=== PATIENT | male | born 1955 | race Caucasian/White ===

== ENCOUNTER → 2018-10-17 07:20 | Outpatient (CLI) | payer BC, SELFPAY ==
[2017-07-06 13:39] VITALS: BMI 25.2
[2018-10-17 09:04] LABS: AST(SGOT) 22 U/L (15-37); Alanine Aminotransfer ALT/SGPT 16 U/L (16-61); Albumin, Serum 3.5 g/dL (3.2-5.0); Alkaline Phosphatase 74 U/L (45-117); Bilirubin, Direct 0.25 mg/dL (0.00-0.30); Cholesterol 119 mg/dL (200); Globulin 3.2 g/dL (2.2-4.2); High Density Lipoprotein 48 mg/dL; Protein, Total 6.7 g/dL (6.4-8.2); Triglycerides 105 mg/dL; Very Low Density Lipoprotein 21 mg/dL (5-40)
== END ==
PROVIDERS: Family Provider Family Medicine; PCP Family Medicine; Referring Provider Internal Medicine Cardiovascular Disease; Visit Provider Internal Medicine Cardiovascular Disease
DX: E78.5 Hyperlipidemia, unspecified (principal); I25.10 Atherosclerotic heart disease of native coronary artery without angina pectoris; Z98.61 Coronary angioplasty status
CPT/HCPCS: 36415; 80061; 80076

== ENCOUNTER → 2018-11-07 06:37 | Outpatient (CLI) | payer BC, SELFPAY ==
[2018-10-21 08:31] VITALS: BMI 26.1
--- NOTE | 2018-11-07 06:42 | ECHOD_ITS ---
Reason For Study: CAD/ASHD Procedure This was a 2D Doppler, Color Flow transthoracic echocardiogram. Exam performed in department. Left Ventricle Normal LV size. Left ventricular systolic function is normal. The estimated ejection fraction is 60 %. Stage 1 diastolic dysfunction. No regional wall motion abnormalities noted. Right Ventricle Normal RV size. Normal systolic function. Atria Normal left atrium. Normal right atrium. Mitral Valve Normal mitral valve. Tricuspid Valve Normal tricuspid valve. Mild tricuspid valve insufficiency. Pulmonary artery systolic pressure is 28 mmHg. Aortic Valve Normal aortic valve. Pulmonic Valve Normal pulmonic valve. Great Vessels Normal aortic root. The pulmonary artery is normal size. Normal inferior vena cava. Pericardium/Pleural No pericardial effusion. MMode/2D Measurements & Calculations LVIDd: 5.0 cm IVSd: 0.90 cm Ao root diam: 3.1 cm LVIDs: 3.3 cm LVPWd: 0.96 cm RVDd: 3.3 cm FS: 35.2 % LAV(MOD-bp): 62.5 ml LA A4 area: 18.6 cm2 LA dimension(2D): 4.1 cm LAV(MOD-bp) Indexed: 30.9 ml/m2 LAV(MOD-sp2): 65.3 ml LAV(MOD-sp4): 54.1 ml RA A4 area: 19.4 cm2 Time Measurements MV dec time: 0.25 sec Doppler Measurements & Calculations MV E max chico: 92.6 cm/sec Lat Peak E' Chico: 10.4 cm/sec Med Peak E' [place]ico: 7.3 cm/sec MV A max chico: 106.3 cm/sec E/E' lat: 8.9 E/E' med: 12.7 MV E/A: 0.87 Ao V2 max: 157.1 cm/sec LV V1 max: 101.4 cm/sec PA V2 max: 122.0 cm/sec Ao max P.9 mmHg LV V1 max P.1 mmHg TR max chico: 247.0 cm/sec TR max P.4 mmHg Interpretation Summary Normal LV size. Left ventricular systolic function is normal. The estimated ejection fraction is 60 %. Stage 1 diastolic dysfunction. Structurally normal valves. Ordering Physician: Jeovany Feliz Referring Physician: Fabiano Quispe Performed By: Eliana Lemus, LEON, RVT
--- NOTE | 2018-11-07 09:14 | STRESSREP ---
Stress Test Report Exercise myocardial perfusion stress test. 63-year-old man with a history of coronary artery disease. Stress protocol: Resting EKG demonstrates normal sinus rhythm with a rate of 60 bpm and T wave inversion noted in lead III. The patient exercised according to the regular Andrew protocol for total duration of 12 minutes completing stage IV of the Andrew protocol the maximum heart rate attained was 144 bpm which was 92% of maximum predicted heart rate the maximum workload was 13.4 metabolic equivalents. Patient maintained sinus rhythm throughout the recording at rest were not T wave inversions were noted in lead III and persisted throughout the stress test. No clinical angina was noted. There were no other concerning EKG changes noted. The resting blood pressure was 148/84 with a peak blood pressure 172/80. No clinical angina was noted. Myocardial perfusion protocol. 10.0 mCi of technetium 99m sestamibi was injected at rest. The patient exercised according to regular Andrew protocol for 12 minutes at peak exercise 31.0 mCi of technetium 99m sestamibi was injected stress images were obtained stress and rest images were reconstructed and compared in the short axis vertical long horizontal long axis. Gated images were also obtained Perfusion SPECT analysis: Review of the stress images demonstrate normal uptake of tracer noted in all areas of the myocardium. The resting images similarly demonstrate normal uptake of tracer noted in all areas of the myocardium. No areas of reversibility are noted suggest ischemia no previous infarct is noted. Gated SPECT analysis: The gated ejection fraction is noted to be 69%. Conclusion: Exercise stress test with no evidence of ischemia noted at a high workload. Preserved ejection fraction. Excellent functional capacity.
== END ==
PROVIDERS: Family Provider Family Medicine; PCP Family Medicine; Referring Provider Internal Medicine Cardiovascular Disease; Visit Provider Internal Medicine Cardiovascular Disease
DX: I25.10 Atherosclerotic heart disease of native coronary artery without angina pectoris (principal); Z98.61 Coronary angioplasty status
CPT/HCPCS: 78452; 93017; 93306; A9500; A4216

== ENCOUNTER → 2019-10-21 08:11 | Outpatient (CLI) | payer BC, SELFPAY ==
[2018-10-21 08:31] VITALS: BMI 26.1
[2019-10-21 10:14] LABS: AST(SGOT) 32 U/L (15-37); Alanine Aminotransfer ALT/SGPT 18 U/L (16-61); Albumin, Serum 3.3 g/dL (3.2-5.0); Alkaline Phosphatase 80 U/L (45-117); Bilirubin, Direct 0.14 mg/dL (0.00-0.30); Cholesterol 123 mg/dL (200); High Density Lipoprotein 53 mg/dL; Protein, Total 6.3 g/dL (6.4-8.2); Triglycerides 57 mg/dL; Very Low Density Lipoprotein 11 mg/dL (5-40)
== END ==
PROVIDERS: Family Provider Family Medicine; PCP Family Medicine; Referring Provider Internal Medicine Cardiovascular Disease; Visit Provider Internal Medicine Cardiovascular Disease
DX: E78.00 Pure hypercholesterolemia, unspecified (principal)
CPT/HCPCS: 36415; 80061; 80076

== ENCOUNTER → 2020-09-30 | Outpatient (CLI) | payer BC, SELFPAY ==
[2019-10-22 08:41] VITALS: BMI 25.9
[2020-09-30 09:52] LABS: ALB/GLOB Ratio 1.1 RATIO (0.9-2.4); AST(SGOT) 35 U/L (15-37); Alanine Aminotransfer ALT/SGPT 19 U/L (16-61); Albumin, Serum 3.6 g/dL (3.2-5.0); Alkaline Phosphatase 115 U/L (45-117); Anion Gap 4 (5-15); BUN 17 mg/dL (7-18); BUN/Creat Ratio 12.3 RATIO (10-20); Bilirubin, Direct 0.22 mg/dL (0.00-0.30); Calcium,Total 8.6 mg/dL (8.5-10.1); Chloride 106 mmol/L (98-107); Cholesterol 129 mg/dL (200); Creatinine, Serum 1.38 mg/dL (0.70-1.30); EST Glomerular Filtration Rate 55 mL/min (>60); Est Glom Filt Rate - Afr Amer 66 mL/min (>60); Globulin 3.3 g/dL (2.2-4.2); Glucose 94 mg/dL (74-106); High Density Lipoprotein 64 mg/dL; Potassium 4.1 mmol/L (3.5-5.1); Protein, Total 6.9 g/dL (6.4-8.2); Sodium Level 139 mmol/L (136-145); Triglycerides 70 mg/dL; Very Low Density Lipoprotein 14 mg/dL (5-40)
== END | disposition home or self-care (01) ==
LOC: LAB 08:25
PROVIDERS: Internal Medicine Cardiovascular Disease; PCP Family Medicine; Referring Provider Family Medicine; Visit Provider Family Medicine
DX: E78.5 Hyperlipidemia, unspecified (principal); I25.10 Atherosclerotic heart disease of native coronary artery without angina pectoris
CPT/HCPCS: 36415; 80053; 80061; 82248

== ENCOUNTER → 2021-10-18 08:09 | Outpatient (CLI) | payer BC, SELFPAY ==
[2021-10-18 09:17] LABS: AST(SGOT) 32 U/L (15-37); Alanine Aminotransfer ALT/SGPT 19 U/L (16-61); Albumin, Serum 3.3 g/dL (3.2-5.0); Alkaline Phosphatase 89 U/L (45-117); Bilirubin, Direct 0.21 mg/dL (0.00-0.30); Cholesterol 129 mg/dL (200); Globulin 3.4 g/dL (2.2-4.2); High Density Lipoprotein 58 mg/dL; Protein, Total 6.7 g/dL (6.4-8.2); Triglycerides 64 mg/dL; Very Low Density Lipoprotein 13 mg/dL (5-40)
== END ==
PROVIDERS: Referring Provider Internal Medicine Cardiovascular Disease; Visit Provider Internal Medicine Cardiovascular Disease
DX: E78.5 Hyperlipidemia, unspecified (principal); I25.10 Atherosclerotic heart disease of native coronary artery without angina pectoris
CPT/HCPCS: 36415; 80061; 80076

== ENCOUNTER → 2021-11-06 07:06 | Outpatient (CLI) | payer BC, SELFPAY ==
--- NOTE | 2021-11-06 11:48 | STRESSREP ---
Stress Test Report Exercise myocardial perfusion stress test. 66-year-old man with a history of coronary artery disease. Stress protocol: Resting EKG demonstrates sinus bradycardia with a rate of 53 bpm. Resting blood pressure is 118/82 mmHg. The patient exercised according to regular Andrew protocol for total duration of 12 minutes. The maximum heart rate attained was 144 bpm which was 94% of max impact at heart rate the maximum workload was 13.4 metabolic equivalents. At rest there were no ST or T wave changes noted to suggest ischemia and at peak exercise upsloping ST changes were noted with did not meet the criteria for ischemia. No clinical angina was noted the test was terminated due to target heart rate being achieved. The peak blood pressure was 152/80 mmHg with a rate-pressure product of 21,300. Myocardial perfusion protocol. 11.0 mCi of technetium 99m sestamibi was injected at rest. The patient exercised according to regular Andrew protocol for total duration of 12 minutes. At peak exercise 33.2 mCi of technetium 99m sestamibi was injected stress images were obtained stress and rest images were reconstructed and compared in the short axis vertical long and horizontal long axis. Gated images were also obtained. Perfusion SPECT analysis: Review of the stress images demonstrate normal uptake of tracer noted in all areas of the myocardium. The resting images similarly demonstrate normal uptake of tracer noted in all areas of the myocardium. No areas of reversibility are noted to suggest ischemia. No previous infarct is noted. Gated SPECT analysis: The gated ejection fraction is 69%. Conclusion: Normal exercise myocardial perfusion stress test at a high workload. Preserved ejection fraction.
== END ==
PROVIDERS: PCP Internal Medicine; Referring Provider Internal Medicine Cardiovascular Disease; Visit Provider Internal Medicine Cardiovascular Disease
DX: I25.10 Atherosclerotic heart disease of native coronary artery without angina pectoris (principal); E78.5 Hyperlipidemia, unspecified; I10 Essential (primary) hypertension; Z95.5 Presence of coronary angioplasty implant and graft
CPT/HCPCS: 78452; 93017; A9500; A4216

== ENCOUNTER → 2022-07-30 | Outpatient (CLI) | payer BC, SELFPAY ==
[2022-07-30 08:39] LABS: Bacteria 0 SEEN /hpf (None Seen); Mucous, Urine 0 SEEN /hpf (<or=2+); Red Blood Cells-Urine 0 SEEN /hpf (0-5); Squamous Epithelial Cells - UA 0 SEEN /hpf (0-5); White Blood Cells 0 SEEN /hpf (0-5)
[2022-07-30 09:43] LABS: Color, Urine Yellow (Yellow); Glucose, Dipstick Normal (Normal); Ketone-Dipstick Negative (Negative); Leukocyte Esterase-Dipstick Negative /ul (Negative); Nitrite-Dipstick Negative (Negative); Occult Blood-Urine Negative /ul (Negative); Protein-Dipstick 15 mg/dl (Negative); Urine Bilirubin Dipstick Negative (Negative); Urine Clarity Clear (Clear); Urine Urobilinogen Normal (Normal)
== END | disposition home or self-care (01) ==
LOC: LAB 08:34
PROVIDERS: PCP Internal Medicine; Referring Provider Internal Medicine; Visit Provider Internal Medicine
DX: R10.9 Unspecified abdominal pain (principal)
CPT/HCPCS: 81001

== ENCOUNTER → 2022-08-01 | Outpatient (CLI) | payer BC, SELFPAY ==
--- NOTE | 2022-08-01 09:20 | US_ITS ---
STUDY: ABDOMINAL ULTRASOUND - RIGHT UPPER QUADRANT REASON FOR VISIT: Male, 67 years old Right flank discomfort -- Attention right upper quadrant, right kidney TECHNIQUE: Ultrasound evaluation of the right upper quadrant was performed with real-time and static sewell-scale imaging. TECHNICAL QUALITY: Adequate. COMPARISON: None. FINDINGS: Liver: The liver measures 15 cm. There is normal echogenicity of the liver. The bile ducts are within normal limits. There is hepatic color flow. The direction of portal flow is hepatopetal. There is a 2 cm x 1.5 cm x 1.5 cm cluster of cysts in the right lobe of the liver. Gallbladder: Normal distended gallbladder. The gallbladder wall measures 1.0 mm. There is a negative sonographic Lindo''s sign. There is no pericholecystic fluid. There are no gallstones. Common Bile Duct (C.B.D.): The common bile duct measures 5.0 mm. Pancreas: There is nonvisualization of the pancreas due to overlying bowel gas. Right Kidney: Normal size of the right kidney. The right kidney measures 9.9 cm x 6.4 cm x 4.3 cm. Normal renal cortex. The right cortex measures 1.2 cm. There is no demonstrated renal mass or cyst. There is no right hydronephrosis. US/Abdomen Limited IMPRESSION: 2 cm x 1.57 x 1.5 cm cyst in the right lobe of the liver. Electronically Signed: Lucas Pettit MD at 13:10 EDT ,
== END | disposition home or self-care (01) ==
PROVIDERS: PCP Internal Medicine; Referring Provider Internal Medicine; Visit Provider Internal Medicine
DX: R10.9 Unspecified abdominal pain (principal)
CPT/HCPCS: 76705

== ENCOUNTER → 2022-10-30 | Outpatient (CLI) | payer BC, SELFPAY ==
[2022-10-30 09:02] LABS: AST(SGOT) 22 U/L (15-37); Alanine Aminotransfer ALT/SGPT 18 U/L (16-61); Albumin, Serum 3.4 g/dL (3.2-5.0); Alkaline Phosphatase 99 U/L (45-117); Bilirubin, Direct 0.21 mg/dL (0.00-0.30); Cholesterol 121 mg/dL (200); Globulin 3.1 g/dL (2.2-4.2); High Density Lipoprotein 58 mg/dL; Protein, Total 6.5 g/dL (6.4-8.2); Triglycerides 58 mg/dL; Very Low Density Lipoprotein 12 mg/dL (5-40)
== END | disposition home or self-care (01) ==
LOC: LAB 08:02
PROVIDERS: PCP Internal Medicine; Referring Provider Internal Medicine Cardiovascular Disease; Visit Provider Internal Medicine Cardiovascular Disease
DX: E78.5 Hyperlipidemia, unspecified (principal)
CPT/HCPCS: 36415; 80061; 80076

== ENCOUNTER → 2022-11-28 | Outpatient (CLI) | payer BC, SELFPAY ==
[2022-11-28 09:36] LABS: PSA,Total - Annual Screen 2.08 ng/mL (0.00-4.00)
== END | disposition home or self-care (01) ==
PROVIDERS: PCP Internal Medicine; Referring Provider Internal Medicine; Visit Provider Internal Medicine
DX: Z12.5 Encounter for screening for malignant neoplasm of prostate (principal)
CPT/HCPCS: 36415; 84153; G0103

== ENCOUNTER → 2023-07-24 | Outpatient (CLI) | payer BC, SELFPAY | END | disposition home or self-care (01) | LOC: LABSPEC 10:28 | PROVIDERS: PCP Internal Medicine; Referring Provider Dermatology; Visit Provider Dermatology | DX: B35.1 Tinea unguium (principal); L84 Corns and callosities | CPT/HCPCS: 87101 ==

== ENCOUNTER → 2023-12-17 | Outpatient (CLI) | payer BC, SELFPAY ==
--- OUTSIDE RECORDS SUMMARY | 2023-12-17 08:47 | XMS RPT_ITS | CCD ---
Author Name Unknown Address [address] [place] [address] Organization [facility] Care Team Providers Care Cocoa Roaster Name Role Phone Samina Syed Unavailable Beth Jacobo Unavailable Clarisse Rice Unavailable Unavailable Pedro Piresn L Unavailable Unavailable Samina Syed Unavailable Beth Jacobo Unavailable Clarisse Rice Unavailable Unavailable Manchak, Eleanor Unavailable Unavailable Long, Marii L Unavailable Unavailable LongPedron L Unavailable Unavailable Slarb, Tanna Unavailable Unavailable Samina Syed MD Unavailable [phone] Beth Jacobo DO Unavailable Clarisse Rice Unavailable Unavailable Marii Pires RN Unavailable Unavailable Manchak ISAIAS, Eleanor Unavailable Unavailable Slarb IRONER, Tanna Unavailable Unavailable Beth Jacobo DO Attending Unavailable Samina Syed MD Consulting Unavailable Elizabeth KERRIE Angle Unavailable Unavailable Problems Active Problems Problem Classification Problem Date Documented Da te Episodic/Chronic Immunizations and screening for infectious disease (20 sources) Need for prophylactic vaccination and inoculation against influenza; Translations: [Needs influenza immunization] 08-13-2017 Episodic Unclassified (18 sources) Needs influenza immunization; Translations: [Need for prophylactic vaccination and inoculation against influenza (Renamed from Need for immunization against influenza)] 10-06-2018 Episodic Past or Other Problems Problem Classification Problem Date Documented Da te Episodic/Chronic Influenza (20 sources) Influenza Unclassified (20 sources) Encounters Encounter Date Encounter Type Care Provider Facility Start: 09-11-2023 End: 09-16-2023 Office outpatient visit 5 minutes Samina Syed MD Work Phone: [facility] Start: 11-12-2022 ambulatory Beth Jacobo DO [facility] Start: 11-12-2022 End: 11-12-2022 Patient encounter procedure Samina Syed MD Work Phone: [facility] Start: 09-02-2020 End: 09-02-2020 Office outpatient visit 5 minutes Samina Syed [facility] Start: 10-05-2019 End: 10-05-2019 Office outpatient visit 5 minutes Samina Syed [facility] Start: 10-06-2018 End: 10-06-2018 Office outpatient visit 5 minutes Samina Syed [facility] Start: 08-13-2017 End: 08-14-2017 Office outpatient visit 5 minutes Samina Syed [facility] Start: 10-12-2016 End: 10-12-2016 Office outpatient visit 5 minutes Samina Syed [facility] Start: 09-22-2015 End: 09-22-2015 Office outpatient visit 5 minutes Samina Syed [facility] Start: 10-01-2014 End: 10-01-2014 Office outpatient visit 5 minutes Samina Syed [facility] Start: 12-11-2013 End: 12-11-2013 Patient encounter Samina Syed [facility] Start: 11-21-2012 End: 11-21-2012 Patient encounter Samina Syed [facility] Start: 09-18-2010 End: 09-18-2010 Patient encounter Samina Syed [facility] Start: 09-12-2009 End: 09-12-2009 Office outpatient new 10 minutes Samina Syed [facility] Plan of Treatment Date Care Activity Detail Author Start: 12-11-2013 Patient Education [facility] Work [facility] Work Phone[facility] Work Phone[facility] Work Phone[facility] Work Phone[facility] Work Phone: Immunizations Immunization Date Immunization Notes Care Provider [facility] 09-12-2009 influenza, seasonal, injectable Samina Bonekeni [facility] Work Phone: Payers Date Payer Category Payer Unknown [id number] 1955 Unknown [id number] Unknown Mabel ALSTON/BS Progress note 10-19-2021 Note Date & Type Note Facility 10-19-2021 Note HNO ID: [id number] Author: Karla Reyna Population Health Navigator Service: ? Author Type: ? Type: Progress Notes Filed: 10/19/2021 2:06 PM Note Text: POPULATION HEALTH NAVIGATION OUTREACH Action/FYI Updated pcp Contact made with patient or family member? NO Pt identified by name and : NO Outreach Outcome/Action PCP field updated Reason for Outreach Attribution: Provider Off-boarding Payer: Payor: MABEL / Plan: BLUE CARD PPO OOS / Product Type: PPO / Care Gap Reviewed:: Annual Wellness visit Reminder: Reminder note to check Health Maintenance for items below Health Maintenance items due: COVID-19 VACCINE(1) Never done BP CONTROLLED (<130/80) Never done SHINGRIX VACCINE(1 of 2) Never done LDL CHOLESTEROL due on 10/17/2019 DEPRESSION SCREENING due on 12/15/2019 INFLUENZA(1) due on 08/02/2021 ANNUAL PCP TEAM CHRONIC DISEASE VISIT due on 10/04/2021 DIABETES SCREEN due on 10/17/2021 DTAP,TDAP,TD(2 - Td or Tdap) due on 11/15/2021 Advanced Directives Completed: Have you ever planned for future healthcare decisions with a power of bone cooking operator, living will, or advance directives? No. Please bring a copy to your next appointment or email to Referrals: N/A Message Sent to Practice: NO Navigation Signature: Karla Reyna Population Health Navigator October 19, 2021 2:05 PM [facility] Clinical Note 10-19-2021 Note Date & Type Note Facility 10-19-2021 Note Patient Outreach (LYNN TNAV) OCTAVIO BARRERA ([id number]) 1955 M Date Time Provider Department 10/19/21 KARLA REYNA During your visit today, we recorded the following information about you: Karla Reyna Population Health Navigator 10/19/2021 2:06 PM Signed POPULATION HEALTH NAVIGATION OUTREACH Action/ Updated pcp Contact made with patient or family member? NO Pt identified by name and : NO Outreach Outcome/Action PCP field updated Reason for Outreach Attribution: Provider Off-boarding Payer: Payor: MABEL / Plan: BLUE CARD PPO OOS / Product Type: PPO / Care Gap Reviewed:: Annual Wellness visit Reminder: Reminder note to check Health Maintenance for items below Health Maintenance items due: COVID-19 VACCINE(1) Never done BP CONTROLLED (<130/80) Never done SHINGRIX VACCINE(1 of 2) Never done LDL CHOLESTEROL due on 10/17/2019 DEPRESSION SCREENING due on 12/15/2019 INFLUENZA(1) due on 08/02/2021 ANNUAL PCP TEAM CHRONIC DISEASE VISIT due on 10/04/2021 DIABETES SCREEN due on 10/17/2021 DTAP,TDAP,TD(2 - Td or Tdap) due on 11/15/2021 Advanced Directives Completed: Have you ever planned for future healthcare decisions with a power of bone cooking operator, living will, or advance directives? No. Please bring a copy to your next appointment or email to [email or web address] Referrals: N/A Message Sent to Practice: NO Navigation Signature: Karla Reyna Population Health Navigator October 19, 2021 2:05 PM Allergies As of Date: 10/19/2021 Noted Allergy Reaction CHOCOLATE 10/30/2005 PEPPERMINT 10/30/2005 ZOCOR (SIMVASTATIN) 07/01/2013 6 - Diarrhea Date Reviewed: 12/12/2020 Reviewed by: Cheryl VuRn) MARIA E Chiang - Fully Assessed Reason for Visit: Population Health Navigation Outreach [3910] Cmt: Offboarding Prescriptions as of 10/19/2021 - polyethylene glycol 3350 (MIRALAX, GLYCOLAX) 17 gram/dose powder Use as directed for Miralax / Gatorade Bowel Prep Kit - Gatorade Sports Drink Use as directed for Miralax / Gatorade Bowel Prep Kit - Bisacodyl (DULCOLAX) 5 mg tab Use as directed for Miralax / Gatorade Bowel Prep Kit - Tadalafil (CIALIS) 10 mg tablet Take 1 tablet by mouth as needed. - clopidogrel (PLAVIX) 75 mg tablet Take 1 tablet by mouth once daily. - NIFEdipine ER (PROCARDIA XL) 60 mg 24 hr tablet Take 1 tablet by mouth once daily. - atorvastatin (LIPITOR) 80 mg tablet Take 1 tablet by mouth once daily. - BABY ASPIRIN ORAL Take by mouth. Problem List As Of Date 10/19/2021 Noted Resolved BENIGN HYPERTENSION [I10] Other and unspecified hyperlipidemia [E78.5] 01/10/2009 06/19/2013 Raynaud disease [I73.00] 12/16/2012 Hyperlipidemia with target LDL less than 100 [E*06/19/2013 ASHD (arteriosclerotic heart disease) [I25.10] 11/30/2015 Encounter Status:Closed by MARIBELL POPULATION HEALTH NAVIGATORKARLA on 10/19/21 [facility] Summary Purpose Family History No Family History Records FoundNo Family History Records Found Advance Directives No Advanced Directives Records FoundNo Advanced Directives Records Found Additional Source Comments (unrecognized sect ion and content) No Status Records FoundNo Status Records Found INFORMATION SOURCE (unrecogn ized section and content) DATE CREATED AUTHOR AUTHOR'S MIKE LEIGH 11/12/2022 [facility] Send the Trend [facility] FOR RECORDS PERTAINING TO PATIENTS WHO ARE OR HAVE BEEN ENROLLED IN A CHEMICAL DEPENDENCY/SUBSTANCEABUSE PROGRAM, SOME INFORMATION MAY BE OMITTED. This clinical summary was aggregated from multiple sources. Caution should be exercised in using it in the provision of clinical care. This summary normalizes information from multiple sources, and as a consequence, information in this document may materially change the coding, format and clinical context of patient data. In addition, data may be omitted in some cases. CLINICAL DECISIONS SHOULD BE BASED ON THE PRIMARY CLINICAL RECORDS. [employer] provides no warranty or guarantee of the accuracy or completeness of information in this document.
[2023-12-17 09:01] LABS: AST(SGOT) 20 U/L (15-37); Alanine Aminotransfer ALT/SGPT 17 U/L (16-61); Albumin, Serum 3.5 g/dL (3.2-5.0); Alkaline Phosphatase 116 U/L (45-117); Bilirubin, Direct 0.19 mg/dL (0.00-0.30); Cholesterol 134 mg/dL (200); Globulin 3.5 g/dL (2.2-4.2); High Density Lipoprotein 56 mg/dL; Triglycerides 85 mg/dL; Very Low Density Lipoprotein 17 mg/dL (5-40)
== END | disposition home or self-care (01) ==
LOC: LAB 08:15
PROVIDERS: PCP Internal Medicine; Referring Provider Internal Medicine Cardiovascular Disease; Visit Provider Internal Medicine Cardiovascular Disease
DX: E78.00 Pure hypercholesterolemia, unspecified (principal)
CPT/HCPCS: 36415; 80061; 80076

== ENCOUNTER 2024-03-06 07:30 | Outpatient (RCR) | payer BC, SELFPAY ==
--- NOTE | 2024-01-27 07:48 | HP.PTEVAL_ITS ---
Patient's Visit Information Visit Information Visit Information: OCTAVIO YANEZ is a 69 year old M referred to Physical Therapy by KATRIN IRVING with a diagnosis of acute medial meniscus tear R knee.. Date of Evaluation: 01/27/24 Physical Therapist: Vinicius Queen, DPT, OCS, CSCS Visit Plan Frequency: 3x /Week Duration: 2 Months Plan: 3x/week for 6-8 weeks as needed for ... 1. patella mobs and ROM R knee progression 2. strength R knee per protocol and eventual to I gym program for membership 3. progression of sports specific(pickleball and golf) as allowed by protocol(in folder and scanned) Subjective Subjective: Got pickle ball injury tearing meniscus R knee 3 months ago. kept playing but hurt and had it removed as it diminished his confidence. He is a golfer and pickle ball and wants to be confident. Surgery was 01/21/24. surgery went well. No pain at all really even after block wore off. Has some sharpness on inside and outisde of R knee turning in bed and feels stiff. Hard to bend. Basic AdLs dress, shower, . 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 has 3-4 steps and that have not been a problem. Pain R knee: Pain Intensity (Out of 10): 0 Pain Intensity Range: 0 and 2 Objective Objective: Walks i without antalgia today short distances. Transfer chair and bed I. Steps prefers L due to lack of ROM causing pain. R knee AROM 0-88 then 92 after heel slides. L knee 0-122 patella stiff on R vs L incisions anterior R knee steristrips in place and dry and no signs of excessive redness heat or swelling. SLR able with B legs, slow on R and no lag. reflexes 2/3 patella and achilles B Sensation LE WNL to gross light touch HS min tight B, gastroc mod tight at 0 DF B. quad not tested due to ROM limitations. ankle and hip AROM WFL today B. Balance/Special Test Scores Lower Extremity Functional Score: 35 Goals Goal 1:: ST: AROM 0-120 R knee without pain Goal Time Frame: 2-4 Weeks Goal 2:: steps and gait normal in community without rail Goal Time Frame: 2-4 Weeks Goal 3:: back to normal activity Goal Time Frame: 6-8 Weeks Goal 4:: I appropriate strength for LE , core and general strength Goal Time Frame: 6-8 Weeks Goal 5:: 55 LEFS Goal Time Frame: 6-8 Weeks Rehabilitation Potential Physical Therapy Diagnosis: R knee ROM limitations and discomfort limiting function Rehabilitation Potential: Good Anticipated Interventions Patient/Client Instruction: Educate patient on: Condition and Risk Factors For the Purpose of:: To decrease pain, To increase ROM, To improve nutrient delivery to tissue, To improve muscle performance and motor function, To increase tolerance to activity/condition/position and To improve ability of physical actions for home/community/work/leisure Therapeutic Exercise to Include: Strength training, Flexibilty training, Gait and locomotor training, Passive ROM and Active ROM For the Purpose of:: To decrease pain, To increase ROM, To improve nutrient delivery to tissue, To improve muscle performance and motor function and To increase tolerance to activity/condition/position Manual Therapy Techniques to Include: Scar massage, Mobilization, Passive ROM and Soft tissue mobilization For the Purpose of:: To decrease pain, To increase ROM, To improve nutrient delivery to tissue, To improve muscle performance and motor function and To increase tolerance to activity/condition/position Cryotherapy (ice pack, ice massage): Yes For the Purpose of:: To decrease pain and To decrease swelling/inflammation Text: Thank you for the opportunity to evaluate your patient. For Medicare and Medicare HMO plans, please review the plan of care and approve it. It will need to be FAXED BACK to us at [phone] for Medicare purposes. For Medicare only, by signing this I certify the plan of care. Please let me know if there are questions or concerns regarding this plan of care. Physician Signature: Date:
--- NOTE | 2024-03-06 08:23 | HP.PTDCSUM ---
Discharge Summary D/C summary: It has been my pleasure to treat OCTAVIO YANEZ referred by KATRIN IRVING, with the diagnosis of acute medial meniscus tear R knee. for a total of 16 visit(s). Discharge Date: 03/06/24 Please see the following information for a summary of their discharge status. Subjective Subjective: No pain , playing pickleball for an hour and a half nearly full go 90%. No pain afterwards. Has not golfed yet. Activities are normal at home. Rempdelling a house and ladders are no problem. Pain R knee: Pain Intensity (Out of 10): 0 Overall Improvement % Improvement: 95 Objective Objective/Function: Full arom R knee 0-124 vs 126 on L. Just tight at end range. walks, jogs, carioca, and sideshuffle without pain today. overall doing well and feels better and can take it from here. Goals Goal 1:: ST: AROM 0-120 R knee without pain Goal Progress: Goal Met Goal 2:: steps and gait normal in community without rail Goal Progress: Goal Met Goal 3:: back to normal activity Goal Progress: Goal Met Goal 4:: I appropriate strength for LE , core and general strength Goal Progress: Goal Met Goal 5:: 55 LEFS Goal Progress: Goal Met Plan Plan: d/c D/C Information Discharge Comments: No problems and will continue on his own. d/c sentence: If there are questions or concerns regarding this patient's physical therapy, please feel free to call me at [phone]. Thank you for the referral of this patient. Sincerely, Vinicius Queen, DPT, OCS, CSCS Balance/Gait/Functional tests Balance/Special Test Scores Lower Extremity Functional Score: 80 Improvement % Improvement: 95
== END 2024-03-06 19:00 | disposition home or self-care (01) ==
LOC: PT 07:30
PROVIDERS: PCP Internal Medicine
DX: S83.241D Other tear of medial meniscus, current injury, right knee, subsequent encounter (principal)
CPT/HCPCS: 97110; 97161; 97530

== ENCOUNTER 2024-04-20 13:00 | Outpatient (RCR) | payer BC, SELFPAY ==
--- NOTE | 2024-03-16 08:20 | HP.PTEVAL_ITS ---
Patient's Visit Information Visit Information Visit Information: OCTAVIO YANEZ is a 69 year old M referred to Physical Therapy by KATRIN IRVING with a diagnosis of R shoulder pain. Date of Evaluation: 03/16/24 Physical Therapist: Vinicius Queen, PRECIOUST, OCS, CSCS Visit Plan Frequency: 2x /Week Duration: 2-4 Weeks Plan: 2x/week x 2-4 weeks upon return from vacation to teach gym based RC, scap and upper half strength to complement LE program and work to I. Emphasize rotations and stability at scap and RC and give list(2 weeks to start) IE: precautions and given GTB er and scap circles. Subjective Subjective: R shoulder pain for long time. Describe as discomfort. Reaching out and lifting hurts. Comfortable rest. Never any pain at rest even after suing it but does feel a catch at times. Sleeping is fine. pain stays at shoulder, no numbness or tingling, maybe some numbness if lies on it wrong at night. Activities are normal, just hurt sometimes. is R handed and plays pickle ball and golf and they only hurt every now and then, sometimes sore after wards. No upper body exercises. Will join and do knee exercises and willing to do upper body. Pain R shoulder: Pain Intensity (Out of 10): 0 Pain Intensity Range: 0 and 6 Objective Objective: Posture is forward head and protracted scapular posture., Tender to soft tissue palpation in R biceps and supraspinatus area moderately. AROM B shoulders elbows and wrists symmetrical and WFL. strength shoulder flexion 4 B, abd 4- R and 4 L, er 4- R and 4 L, IR 4+ B. Elbows 4+ flexion and extension B, wrists 4 B. sensation UE WNL to gross light touch. reflexes 2/3 biceps and triceps. - ext rotation lag test - sulcus -apprehension + HK and neer very slightly. on R only. Balance/Special Test Scores Quick DASH Score: 6.8175 Goals Goal 1:: Patient I in appropriate gym based RC and scap strength to minimize future problems Goal Time Frame: 2-4 Weeks Goal 2:: Pain in R shoulder feel 75% better and none with pickle ball. Goal Time Frame: 2-4 Weeks Rehabilitation Potential Physical Therapy Diagnosis: R shoulder inflammation and weakness and postural deficits causing functional discomfort Rehabilitation Potential: Good Anticipated Interventions Patient/Client Instruction: Educate patient on: Condition For the Purpose of:: To decrease pain, To increase ROM, To improve nutrient delivery to tissue, To increase tolerance to activity/condition/position and To reduce risk of recurrence Therapeutic Exercise to Include: Strength training and Postural training For the Purpose of:: To decrease pain, To improve nutrient delivery to tissue, To improve muscle performance and motor function and To increase tolerance to activity/condition/position Text: Thank you for the opportunity to evaluate your patient. For Medicare and Medicare HMO plans, please review the plan of care and approve it. It will need to be FAXED BACK to us at [phone] for Medicare purposes. For Medicare only, by signing this I certify the plan of care. Please let me know if there are questions or concerns regarding this plan of care. Physician Signature: _Date:
--- NOTE | 2024-04-20 13:38 | HP.PTDCSUM ---
Discharge Summary D/C summary: It has been my pleasure to treat OCTAVIO YANEZ referred by KATRIN IRVING, with the diagnosis of R shoulder pain for a total of 5 visit(s). Discharge Date: 04/20/24 Please see the following information for a summary of their discharge status. Subjective Subjective: Just back from vacation in [place]. Shoulder is doing well. Tingling in am sometimes in morning if sleeps on tummy. Excited to implement. Pickle ball without an issue. Will do exercises and see how it goes. Confident with exercises. Pain R shoulder: Pain Intensity (Out of 10): 0 Overall Improvement % Improvement: 90 Objective Objective/Function: Full aROM without pain. strength 5/5 rotations without pain in R shoulder./ Goals Goal 1:: Patient I in appropriate gym based RC and scap strength to minimize future problems Goal Progress: Goal Met Goal 2:: Pain in R shoulder feel 75% better and none with pickle ball. Goal Progress: Goal Met Plan Plan: d/c D/C Information Discharge Comments: will continue via gym ex program. d/c sentence: If there are questions or concerns regarding this patient's physical therapy, please feel free to call me at [phone]. Thank you for the referral of this patient. Sincerely, Vinicius Queen, DPT, OCS, CSCS Balance/Gait/Functional tests Balance/Special Test Scores Quick DASH Score: 6.8175 Improvement % Improvement: 90
== END 2024-04-20 19:00 | disposition home or self-care (01) ==
LOC: PT 13:00
PROVIDERS: PCP Internal Medicine
DX: M25.811 Other specified joint disorders, right shoulder (principal)
CPT/HCPCS: 97110; 97161

== ENCOUNTER → 2024-10-13 | Outpatient (CLI) | payer BC, SELFPAY ==
[2024-10-13 08:07] LABS: AST(SGOT) 37 U/L (15-37); Alanine Aminotransfer ALT/SGPT 19 U/L (16-61); Albumin, Serum 3.9 g/dL (3.2-5.0); Alkaline Phosphatase 103 U/L (45-117); Bilirubin, Direct 0.29 mg/dL (0.00-0.30); Cholesterol 139 mg/dL (200); Globulin 3.1 g/dL (2.2-4.2); High Density Lipoprotein 73 mg/dL; Triglycerides 74 mg/dL; Very Low Density Lipoprotein 15 mg/dL (5-40)
--- NOTE | 2024-10-13 17:47 | STRESSREP ---
Stress Test Report Exercise myocardial perfusion stress test. 69-year-old man with a history of coronary artery disease Stress protocol: Resting EKG demonstrates normal sinus rhythm with a rate of 69 bpm resting blood pressure is 118/80 mmHg. The patient exercised according to the regular Andrew protocol for a total duration of 12 minutes completing stage IV of the Andrew protocol attaining a maximum heart rate of 150 bpm which was 100% of maximum predicted heart rate; the maximum workload was 13.4 metabolic equivalents. At rest there were no ST or T wave changes noted to suggest ischemia and at peak exercise upsloping ST changes only were noted which did not meet the criteria for ischemia. No clinical angina was noted the test was terminated due to the target heart rate being achieved/fatigue. The peak blood pressure was 168/70 mmHg. Rate-pressure product was 25,200. Myocardial perfusion protocol. 12.0 mCi of technetium 99m sestamibi was injected at rest. The patient exercised according to regular Andrew protocol for total duration of 12 minutes and at peak exercise 34 mCi of technetium 99m sestamibi was injected stress images were obtained stress and rest images were reconstructed in comparing the short axis vertical long and horizontal long axis. Gated images were also obtained. Perfusion SPECT analysis: Review of the stress images demonstrate normal uptake of tracer noted in all areas of the myocardium. The resting images similarly demonstrate normal uptake of tracer noted in all areas of the myocardium. No areas of reversibility are noted to suggest ischemia no previous infarct was noted. Gated SPECT analysis: The gated ejection fraction is 73%. Conclusion: Normal exercise myocardial perfusion stress test at a high workload Preserved ejection fraction.
== END | disposition home or self-care (01) ==
PROVIDERS: PCP Internal Medicine; Referring Provider Internal Medicine Cardiovascular Disease; Visit Provider Internal Medicine Cardiovascular Disease
DX: E78.00 Pure hypercholesterolemia, unspecified (principal); Z95.5 Presence of coronary angioplasty implant and graft
CPT/HCPCS: 36415; 78452; 80061; 80076; 93017; A9500; A4216